=== PATIENT | female | born 1945 | race Caucasian/White ===

== ENCOUNTER → 2020-12-22 | Outpatient (CLI) | payer BC ==
[~2020-12-22] MED LIST: ASPIRIN325 PO; ATORVASTATIN CA40 MG PO; FISH OIL 1,001000 M2 PO; NAPROSYN500 MG PO; NITROGLYCERIN0.4 MG SUBLING; NORVASC5 MG PO; QUINU10 PD PO; TRAZODONE HCL50 MG PO; UNICOMPLEX M TA1 TA1 PO; VITAMIN D1000 UNI1 PO; ZETIA10 MG PO
== END ==
LOC: SJCVC 11:40
PROVIDERS: ATTEND Internal Medicine Cardiovascular Disease
DX: R94.31 Abnormal electrocardiogram [ECG] [EKG] (principal); I25.10 Atherosclerotic heart disease of native coronary artery without angina pectoris; I10 Essential (primary) hypertension; E78.00 Pure hypercholesterolemia, unspecified; C85.90 Non-Hodgkin lymphoma, unspecified, unspecified site; Z88.1 Allergy status to other antibiotic agents; Z88.8 Allergy status to other drugs, medicaments and biological substances; Z87.891 Personal history of nicotine dependence

== ENCOUNTER → 2021-08-13 | Outpatient (CLI) | payer BC | LOC: SJCVC 14:00 | PROVIDERS: ATTEND Internal Medicine Cardiovascular Disease | DX: R94.31 Abnormal electrocardiogram [ECG] [EKG] (principal); I25.10 Atherosclerotic heart disease of native coronary artery without angina pectoris; I10 Essential (primary) hypertension; E78.00 Pure hypercholesterolemia, unspecified; C85.90 Non-Hodgkin lymphoma, unspecified, unspecified site; Z86.16 Personal history of COVID-19; Z87.891 Personal history of nicotine dependence; Z79.82 Long term (current) use of aspirin; Z79.899 Other long term (current) drug therapy; Z88.2 Allergy status to sulfonamides; Z88.1 Allergy status to other antibiotic agents ==